=== PATIENT | female | born 1960 | race Caucasian/White ===

== ENCOUNTER 2025-07-21 10:11 | Emergency (ER) | payer OTHER ==
[~2025-07-21] VITALS: Ht 165.1 cm; Wt 122.7 kg
[2025-07-21] MEDS ORDERED: VENTOLIN HFA18 GM (11:51)
[2025-07-21] MEDS ORDERED: AMOX TR-K CLV1 EAC1 (11:52)
[2025-07-21] MEDS ORDERED: OXYCODONE HCL5 M3 (11:52)
[2025-07-21 16:15] VITALS: BP 143/82
== END 2025-07-21 14:00 | disposition home or self-care (01) ==
LOC: ED 10:11
DX: S61.250A Open bite of right index finger without damage to nail, initial encounter (principal); W54.0XXA Bitten by dog, initial encounter; K21.9 Gastro-esophageal reflux disease without esophagitis
CPT/HCPCS: 99283